=== PATIENT | male | born 1950 | race Hispanic/Latino ===

== ENCOUNTER 2016-06-04 07:10 | Day surgery (SDC) | payer OTHER ==
[2016-06-04] MEDS ORDERED: ECOTRIN PO ONE (07:36)
[2016-06-04] MEDS ORDERED: NACL 0.9% 500 ML 500 ML IV SCH (08:00)
[2016-06-04 08:16] LABS: Basophils % (Auto) 1.2 % (0.0-1.8); Eosinophils % (Auto) 3.2 % (0.0-4.3); Hematocrit 44.1 % (35.5-45.6); Mean Corpuscular HGB Conc 34 % (32-34); Mean Corpuscular Hemoglobin 29 pg (28-32); Mean Corpuscular Volume 86 fl (84-94); Platelet Count 189 K/mm3 (140-440); Red Blood Count 5.14 M/mm3 (3.65-5.03); Red Cell Distribution Width 13.7 % (13.2-15.2); White Blood Count 4.7 K/mm3 (4.5-11.0)
[2016-06-04 08:28] LABS: INR 0.99 (0.87-1.13)
[2016-06-04 09:56] LABS: Anion Gap 19 mmol/L; Blood Urea Nitrogen 10 mg/dL (9-20); Calcium 9.1 mg/dL (8.4-10.2); Carbon Dioxide 24 mmol/L (22-30); Chloride 101.2 mmol/L (98-107); Glucose 96 mg/dL (75-100); Potassium 4.6 mmol/L (3.6-5.0); Sodium 140 mmol/L (137-145)
[2016-06-04] MEDS: NITROGLYCERIN SYRINGE 3 ML ONE ×2 (10:56→11:13)
[2016-06-04] MEDS: HEPARIN/NS 5000 UNIT/500ML(CATH LAB) 1,000 ML IR ONE ×2 (10:56→11:00)
[2016-06-04] MEDS: VERSED ONE ×2 (10:57→11:06)
[2016-06-04] MEDS: XYLOCAINE 2% INFILTRATI ONE ×2 (10:57→11:12)
[2016-06-04] MEDS: SUBLIMAZE ONE ×2 (10:57→11:06)
[2016-06-04] MEDS: HEPARIN 10,000 UNITS/10 ML ONE ×2 (10:58→11:13)
[2016-06-04] MEDS: CALAN ONE ×2 (10:58→11:13)
--- NOTE | 2016-06-04 11:59 | Discharge Summary ---
Short Stay Discharge Plan Activity: advance as tolerated Weight Bearing Status: Full Weight Bearing Diet: low fat, low cholesterol, low salt, diabetic Wound: keep clean and dry Special Instructions: smoking cessation, no heavy lifting (3 days) Follow up with: WAYLON GOODSON MD [Staff Physician] - 7 Days
[2016-06-04] MEDS ORDERED: NACL 0.9% 1000 ML 1,000 ML IV SCH (12:00)
--- NOTE | 2016-06-04 12:46 | Cardiac Catherization Report ---
CARDIAC CATHETERIZATION REASON FOR PROCEDURE: History of coronary artery disease and ischemic cardiomyopathy, progressive left ventricular systolic dysfunction, abnormal thallium stress test. PROCEDURE : The patient was prepped and draped in a sterile fashion after informed consent. The right radial artery was entered using the Seldinger technique followed by placement of a 6-[place] hydrophilic sheath. A #3.5 left Yane catheter was used for left coronary angiography. A #4 right Yane was used for right coronary angiography. The pigtail catheter was used for left ventricle angiography. The catheters were removed, sheath removed, and hemostasis achieved using manual compression. The patient was returned to the postprocedure unit in stable condition. There were no complications. FINDINGS: HEMODYNAMICS: Left ventricle end diastolic pressure was 33, following coronary angiography. Ascending aortic pressure was 116/75. There was no significant pressure gradient on pullback across the aortic valve. CORONARY ANGIOGRAPHY: The left main coronary artery was angiographically normal. The left anterior descending artery and its diagonal branches contained diffuse mild atherosclerosis. No significant obstructive lesions were noted in the LAD system. No stents were visualized in the LAD system on this angiogram. A medium to large ramus intermedius artery contained a 40% stenosis of its proximal segment. The circumflex artery was a small system consisting of a small AV groove vessel terminating in a small caliber terminal obtuse marginal. There was 100% occlusion of this circumflex in its distal segment just before its terminal bifurcation. This appeared to be a chronic total occlusion with some reconstitution by bridging collaterals. The vessel was of very small caliber, less than 2 mm in this segment. The right coronary artery was a large, dominant vessel. There was a long stented segment, comprising the entire mid right coronary artery. The stented segment was largely patent, but there was mild diffuse in-stent restenosis, with an up to 40-50% stenosis in the mid stent. Otherwise, mild diffuse atherosclerosis were noted of a large distal right coronary system. The left ventricle was moderately to severely dilated. There was severe left ventricular systolic dysfunction, with left ventricular systolic ejection fraction estimated at 25%. CONCLUSION: 1. Two-vessel coronary artery disease as above. 2. 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 3. Patent mid right coronary artery stent, demonstrating nonobstructive in-stent restenosis. 4. Severe dilated cardiomyopathy, ejection fraction 25%. RECOMMENDATION: 1. Aggressive risk factor modification and medical therapy for coronary artery disease as described above. 2. Medical therapy for dilated cardiomyopathy, the severity of which appears disproportionate to the degree of coronary artery disease that is evident. JOB# [id number] IDALIA/NTS
[2016-06-04 14:44] VITALS: BP 108/71
== END 2016-06-04 15:10 | disposition home or self-care (01) ==
LOC: OPU 07:10
PROVIDERS: ATTEND Internal Medicine Cardiovascular Disease
DX: I25.10 Atherosclerotic heart disease of native coronary artery without angina pectoris (principal); I25.82 Chronic total occlusion of coronary artery; E78.5 Hyperlipidemia, unspecified; I10 Essential (primary) hypertension; Z79.01 Long term (current) use of anticoagulants; Z95.5 Presence of coronary angioplasty implant and graft; Z79.899 Other long term (current) drug therapy
CPT/HCPCS: 36415; 80048; 85025; 85610; 85730; 93005; 93010; 93458; C1769; C1894; J1644; J2250; J3010; J7040; Q9967